=== PATIENT | female | born 1955 | race Caucasian/White ===

== ENCOUNTER 2018-03-03 08:44 | Inpatient (IN) | payer BC ==
[~2018-03-03] VITALS: Ht 160 cm; Wt 79.2 kg
[2018-03-03] MEDS ORDERED: ONDANSETRON 2MG/ML, 2ML ONE (09:15)
[2018-03-03] MEDS ORDERED: PANTOPRAZOLE 40 MG IV ONE ×2 (09:15→11:09)
[2018-03-03] MEDS ORDERED: ATEN100T PO (09:26)
[2018-03-03] MEDS ORDERED: AMLO5TAB2 PO (09:26)
[2018-03-03] MEDS ORDERED: DIAZIDE PO (09:26)
[2018-03-03 09:29] LABS: BASOPHILS # (AUTO) 0.02 x10^3/uL (0-0.1); BASOPHILS % (AUTO) 0 % (0-1); EOSINOPHILS # (AUTO) 0.16 x10^3/uL (0-0.4); EOSINOPHILS % (AUTO) 1 % (1-7); LYMPHOCYTES % (AUTO) 13 % (22-44); MD NO; MEAN CORPUSCULAR HEMOGLOBIN 30.4 pg (27.0-34.8); MEAN CORPUSCULAR HGB CONC 34.2 g/dL (32.4-35.8); MEAN CORPUSCULAR VOLUME 88.8 fL (80-100); MEAN PLATELET VOLUME 7.6 fL (7.4-10.4); MONOCYTES # (AUTO) 0.39 x10^3/uL (0.2-0.8); MONOCYTES % (AUTO) 3 % (2-9); NEUTROPHILS # (AUTO) 9.52 x10^3/uL (1.8-6.8); NEUTROPHILS % (AUTO) 82 % (42-75); PLATELET COUNT 296 x10^3/uL (130-400); RED BLOOD COUNT 4.16 x10^6/uL (3.82-5.3); RED CELL DISTRIBUTION WIDTH 13.7 % (9.6-15.2)
[2018-03-03] MEDS ORDERED: SODIUM CHLORIDE FLUSH 10ML SYR IVF ONE (09:30)
[2018-03-03] MEDS ORDERED: ONDANSETRON 2MG/ML, 2ML IVPush ONE (09:30)
[2018-03-03] MEDS ORDERED: PANTOPRAZOLE 40 MG IV IVPush SCH (09:30)
[2018-03-03] MEDS ORDERED: SODIUM CHLORIDE 0.9% 1,000ML IVBOLUS ONE (09:30)
[2018-03-03 09:34] LABS: GASTRIC OCCULT BLD POSITIVE (NEGATIVE)
[2018-03-03 09:39] LABS: ALANINE AMINOTRANSFERASE 29 U/L (12-78); ALBUMIN 4.4 g/dL (3.4-5.0); ANION GAP 9 mmol/L (5-15); CALCIUM 9.2 mg/dL (8.5-10.1); CHLORIDE 109 mmol/L (98-107); CREATININE 0.99 mg/dL (0.55-1.02)
[2018-03-03 09:42] LABS: ALKALINE PHOSPHATASE 100 U/L (45-117); BILIRUBIN,TOTAL 0.8 mg/dL (0.2-1.0); TOTAL PROTEIN 7.8 g/dL (6.4-8.2)
[2018-03-03] MEDS ORDERED: OCTREOTIDE 500 MCG in SODIUM CHLORIDE 0.9% 249 ML IV PRN (10:38)
[2018-03-03 11:00] LABS: INTERNATIONAL NORMALIZED RATIO 0.97 (0.93-1.1)
[2018-03-03] MEDS ORDERED: PANTOPRAZOLE 40 MG IV IVPush ONE (11:00)
[2018-03-03] MEDS ORDERED: OCTREOTIDE 100MCG/ML, 1ML (0.1MG/ML) IV ONE (11:00)
[2018-03-03] MEDS ORDERED: SUMA4PEN SC (11:01)
[2018-03-03] MEDS ORDERED: HYDR1TAB14 PO (11:01)
[2018-03-03] MEDS ORDERED: PROM12.553 RC (11:01)
[2018-03-03] MEDS ORDERED: SUMA20SP NAS (11:01)
[2018-03-03] MEDS ORDERED: SUMA100T3 PO (11:01)
[2018-03-03] MEDS: PANTOPRAZOLE 80 MG in SODIUM CHLORIDE 0.9% 100 ML IV SCH ×2 (11:22→20:38)
[2018-03-03] MEDS ORDERED: OCTREOTIDE 100MCG/ML, 1ML (0.1MG/ML) ONE (11:25)
[2018-03-03 12:02] VITALS: BP 152/81
[2018-03-03] MEDS ORDERED: ONDANSETRON 2MG/ML, 2ML IVPush PRN (13:30)
[2018-03-03] MEDS ORDERED: hydrALAzine 20 MG/ML, 1ML IVPush PRN (13:30)
[2018-03-03] MEDS ORDERED: LABETALOL 5MG/ML, 20ML IVPush PRN (13:30)
[2018-03-03] MEDS ORDERED: ACETAMINOPHEN 325 MG TABLET PO PRN (13:30)
[2018-03-03] MEDS ORDERED: PROMETHAZINE 12.5 MG SUPP PR PRN (13:30)
[2018-03-03] MEDS ORDERED: SUMATRIPTAN 100 MG TABLET PO PRN (13:30)
[2018-03-03] MEDS ORDERED: HYDROcodone/APAP 5/325 TABLET PO PRN (13:30)
[2018-03-03] MEDS ORDERED: FENTANYL PF 100 MCG/2ML ONE (13:51)
[2018-03-03] MEDS ORDERED: MIDAZOLAM 1 MG/ML, 5ML ONE (13:51)
[2018-03-03 14:40] VITALS: BP 132/68
[2018-03-03] MEDS: SODIUM CHLORIDE 0.9% 1,000 ML IV SCH (16:28)
[2018-03-03 19:12] VITALS: BP 162/88
[2018-03-03] MEDS ORDERED: DIPHENHYDRAMINE 25 MG CAPSULE PO ONE (20:00)
[2018-03-04 02:20] VITALS: BP 163/78
[2018-03-04 04:15] LABS: BASOPHILS # (AUTO) 0.03 x10^3/uL (0-0.1); BASOPHILS % (AUTO) 0 % (0-1); EOSINOPHILS # (AUTO) 0.36 x10^3/uL (0-0.4); EOSINOPHILS % (AUTO) 5 % (1-7); LYMPHOCYTES # (AUTO) 2.52 x10^3/uL (1-3.4); LYMPHOCYTES % (AUTO) 32 % (22-44); MD NO; MEAN CORPUSCULAR HEMOGLOBIN 30.7 pg (27.0-34.8); MEAN CORPUSCULAR HGB CONC 33.9 g/dL (32.4-35.8); MEAN CORPUSCULAR VOLUME 90.6 fL (80-100); MEAN PLATELET VOLUME 7.6 fL (7.4-10.4); MONOCYTES # (AUTO) 0.44 x10^3/uL (0.2-0.8); MONOCYTES % (AUTO) 6 % (2-9); NEUTROPHILS # (AUTO) 4.59 x10^3/uL (1.8-6.8); NEUTROPHILS % (AUTO) 58 % (42-75); PLATELET COUNT 249 x10^3/uL (130-400); RED CELL DISTRIBUTION WIDTH 13.9 % (9.6-15.2)
[2018-03-04] MEDS: SODIUM CHLORIDE 0.9% 1,000 ML IV SCH (05:37)
[2018-03-04 06:18] LABS: ANION GAP 7 mmol/L (5-15); CHLORIDE 110 mmol/L (98-107); CREATININE 0.78 mg/dL (0.55-1.02)
[2018-03-04] MEDS: PANTOPRAZOLE 80 MG in SODIUM CHLORIDE 0.9% 100 ML IV SCH (06:38)
[2018-03-04 07:55] VITALS: BP 164/90
[2018-03-04] MEDS ORDERED: AMLODIPINE 5 MG TABLET PO SCH (09:00)
[2018-03-04] MEDS ORDERED: ATENOLOL 100 MG TABLET PO SCH (09:00)
[2018-03-04] MEDS ORDERED: OMEP20TA62 PO (10:40)
[2018-03-04] MEDS ORDERED: OMEPRAZOLE 20 MG CAPSULE.DR PO ONE (11:00)
== END 2018-03-04 14:16 | disposition home or self-care (01) | DRG 370 ==
LOC: ED 09:38 → EDIP 11:17 → 3NE 12:00
PROVIDERS: ADMIT Hospitalist; ATTEND Hospitalist
PROC: 0DJ08ZZ Inspection of Upper Intestinal Tract, Via Natural or Artificial Opening Endoscopic (ICD-10-PCS; principal; 2018-03-03 14:00)
DX: K22.6 Gastro-esophageal laceration-hemorrhage syndrome (principal); E78.5 Hyperlipidemia, unspecified; G43.909 Migraine, unspecified, not intractable, without status migrainosus; I10 Essential (primary) hypertension; K44.9 Diaphragmatic hernia without obstruction or gangrene; Z88.8 Allergy status to other drugs, medicaments and biological substances; K29.71 Gastritis, unspecified, with bleeding
CPT/HCPCS: 36415; 80048; 80053; 82271; 83690; 85014; 85018; 85025; 85610; 85730; 96361; 96374; 96375; 96376; 99152; 99153; J2250; J2354; J2405; J3010; C9113; J7030; J7050; Q0163